=== PATIENT | female | born 1995 | race African-American/Black ===

== ENCOUNTER 2017-09-15 23:56 | Emergency (ER) | payer MEDICARE ==
[~2017-09-15] VITALS: Ht 144.8 cm; Wt 104.5 kg
[2017-09-16] VITALS: Ht 144.8 cm; Wt 104.5 kg
[2017-09-16] MEDS ORDERED: FLOVENT HFA 11012 GM INH (00:06)
[2017-09-16] MEDS ORDERED: VENTOLIN HFA18 GM INH (00:06)
[2017-09-16] MEDS ORDERED: DOXYCYCLINE HY100 M2 PO (00:06)
[2017-09-16 00:58] VITALS: BP 135/75
== END 2017-09-16 01:06 | disposition home or self-care (01) ==
LOC: D.ER 23:56
DX: J20.9 Acute bronchitis, unspecified (principal)

== ENCOUNTER → 2017-09-21 | Emergency (ER) | payer MEDICARE ==
[~2017-09-21] MED LIST: DOXYCYCLINE HY100 M2 PO; FLOVENT HFA 11012 GM INH; VENTOLIN HFA18 GM INH
== END | disposition home or self-care (01) ==
LOC: CANPREER → D.ER 19:16
DX: R50.9 Fever, unspecified (principal); R11.10 Vomiting, unspecified